=== PATIENT | male | born 1990 | race Caucasian/White ===

== ENCOUNTER 2019-09-08 18:54 | Inpatient (IN) ==
[2019-09-08 19:34] LABS: BASO# 0.28 X1000 (0.0-0.2); BASO% 4.3 % (0.0-0.8); EOS# 0.12 X1000 (0.0-0.7); EOS% 1.8 % (0.0-10.0); HEMATOCRIT 48.1 % (42.0-52.0); HEMOGLOBIN 16.2 g/dL (14.0-18.0); IMM GRAN# 0.02 X1000 (0.0-0.04); IMM GRAN% 0.3 % (0.0-0.5); LYMPH# 2.95 X1000 (1.2-3.4); LYMPH% 45.4 % (20.5-51.1); MCH 29.2 PG (27-31); MCHC 33.7 g/dL (33-37); MCV 86.7 FL (81-99); MONO# 0.83 X1000 (0.11-0.59); MONO% 12.8 % (1.7-9.3); MPV 11.1 FL (7.4-10.4); NEUT% 35.4 % (42.2-75.2); PLT 241 X1000 (130-400); RBC 5.55 XMIL (4.7-6.1)
[2019-09-08 19:53] LABS: AGAP 11; ALB/GLOB RATIO 1.1; ALBUMIN 3.6 g/dL (3.5-5.0); ALKALINE PHOSPHATASE 170 U/L (32-122); BUN 9 mg/dL (8-22); CHLORIDE 101 mmol/L (98-107); COSMO 275; CREATININE 0.8 mg/dL (0.7-1.2); ESTIMATED GFR > 60; GLUCOSE 114 mg/dL (70-104); LIPASE 14 U/L (13-60); POTASSIUM 4.4 mmol/L (3.5-5.1); SODIUM 138 mmol/L (136-145); TCO2 26 mmol/L (25-35); TOTAL BILIRUBIN 3.33 mg/dL (0.20-1.00); TOTAL PROTEIN 6.9 g/dL (6.3-8.3)
[2019-09-08 19:57] LABS: GOT 1016 U/L (10-34); GPT 1791 U/L (10-44)
[2019-09-08] MEDS ORDERED: ZOFRAN IV ONE (23:10)
[2019-09-08] MEDS ORDERED: NS 1,000 ML IV ONE (23:10)
[2019-09-08 23:16] LABS: URINE SOURCE CLEAN CATCH
[2019-09-08 23:21] LABS: BILIRUBIN URINE LARGE (NEGATIVE); BLOOD URINE NEGATIVE (NEGATIVE); COLOR YELLOW; GLUCOSE URINE NEGATIVE (NEGATIVE); KETONE URINE NEGATIVE (NEGATIVE); LEUKOCYTES URINE NEGATIVE (NEGATIVE); NITRITE URINE NEGATIVE (NEGATIVE); PROTEIN URINE 30 mg/dL (NEGATIVE); TURBIDITY URINE CLEAR (CLEAR); UR EPITHELIAL CELLS <10 /HPF (<10); URINE BACTERIA NEGATIVE /HPF; URINE RBC TNTC /HPF (<10); URINE WBC <10 /HPF (<10); UROBILINOGEN URINE 8 mg/dL (NORMAL)
--- NOTE | 2019-09-08 23:35 | PROVIDER DOCUMENTATION ---
This chart was entered by Kimberley Humphries Scribe, acting as scribe for Cynthia Arthur MD. HPI-Abdominal Pain/GI Problem - General Chief Complaint: Abdominal Pain Stated Complaint: ABD PAIN Time Seen by Provider: 09/08/19 19:21 Source: patient Allergies/Adverse Reactions: Patient Allergies Allergy/AdvReac Type Severity Reaction Status Date / Time No Known Allergies Allergy Verified 09/08/19 22:12 Home Medications: Home Medication List Medication Instructions Recorded Confirmed Last Taken Type NK [No Home Medications] 09/08/19 09/08/19 Unknown History - History of Present Illness-ABD Nature of Presenting Problems: Pt is a 28 yom who presents to the ED with LLQ and Epigastric pain onset 1 wk ago. Pt reports N/V and poor appetite. Pt reports poor fluid and solid intake, states that he "cant keep anything down." Pt denies any diarrhea. Reports possible fever. 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 States that he hasn't used in 2months. Pt is jaundice in appearance. Pt denies any other complaints. Abdominal Pain Onset Location: reports: LLQ, epigastric Quality of Pain: reports: fullness, other (bloating) Severity in ED: reports: mild Onset/Duration: reports: 1 week ago Timing: reports: still present Activities at Onset: reports: none Exposure to sick contacts?: No Modifying Factors: improves with: nothing Associated Symptoms: reports: fever/chills (possible), loss of appetite, nausea, vomiting, other (dehydration) Last BM: unsure Dark Stools Present?: reports: none noticed Rectal Bleeding: reports: none Rectal Pain: reports: none Emesis Description: reports: none Bruising or Bleeding Gums?: No Similar Symptoms Previously?: No Recently seen or treated by another doctor?: No Review of Systems - Adult - REVIEW OF SYSTEMS - ADULT Constitutional: reports: see HPI Eyes: reports: see HPI Ears, Nose, Mouth & Throat: reports: no symptoms reported Cardiovascular: reports: no symptoms reported Respiratory: reports: no symptoms reported Gastrointestinal: reports: see HPI, abdominal pain (LLQ, Epigastric), nausea, poor appetite, vomiting, other (poor fluid and solid intake) Genitourinary: reports: no symptoms reported Musculoskeletal: reports: no symptoms reported Integumentary: reports: no symptoms reported Neurological: reports: no symptoms reported Psychiatric: reports: no symptoms reported Endocrine: reports: no symptoms reported Hematologic/Lymphatic: reports: no symptoms reported Allergic/Immunologic: reports: no symptoms reported All Other Systems: Reviewed and Negative Past History - Adult - PAST MEDICAL HISTORY-ADULT Review of Records: reports: Old Records Reviewed, Nursing Assessment Review, Medications Reviewed, Social history reviewed & non-contributory. Major Childhood Illnesses: reports: denies history Cardiovascular: reports: denies history Respiratory: reports: denies history Gastrointestinal: reports: denies history Obstetrical/Gynecological: reports: denies history Genitourinary: reports: denies history Musculoskeletal: reports: denies history Neurological: reports: denies history Endocrine/Immune: reports: denies history Other Conditions: reports: denies history - PRIOR SURGERIES/PROCEDURES Surgical/Procedure History: reports: reviewed, not pertinent - IMMUNIZATION STATUS Childhood Immunizations: See Nurse Assessment Flu Vaccine: See Nurse Assessment - FAMILY HISTORY Family History: kidney stones - SOCIAL HISTORY Smoking: non-smoker Substance Use: none presently/history of abuse, other (crystal meth) Living Situation: family Physical Exam-General - PHYSICAL EXAM-ADULT Initial Vital Signs Reviewed: No - CONSTITUTIONAL General Appearance: alert, no apparent distress, other (jaundice in appearance) - EYES Eyes: scleral icterus - HEAD, EARS, NOSE, MOUTH & THROAT HENMT: normocephalic/atraumatic - NECK Neck: non-tender, full range of motion, supple, normal inspection - RESPIRATORY Respiratory: chest non-tender, lungs clear, normal breath sounds, no respiratory distress, no accessory muscle use - CARDIOVASCULAR Cardiovascular: normal peripheral pulses, regular rate, rhythm, no edema, no murmur - GASTROINTESTINAL (ABDOMEN) Abdominal Exam: soft, distended (mild), tenderness (diffused abdominal tenderness) - MUSCULOSKELETAL Back Exam: normal inspection Extremity: normal range of motion, non-tender, normal gait, normal inspection, no pedal edema - SKIN Integumentary: warm/dry, jaundice (mild). negative: normal color - NEUROLOGIC Neurologic: grossly normal - PSYCHIATRIC Psych/Mental Status: normal mood/affect, normal thought content, normal thought process, oriented x 3 Progress - PLAN OF CARE/RESULTS Progress/Plan/Lab Results: Vital Signs - 8 hr 09/08/19 19:05 09/08/19 22:18 Temperature 97.4 F L Pulse Rate 94 H 94 H Respiratory Rate 17 16 Blood Pressure 121/75 121/71 O2 Sat by Pulse Oximetry 98 99 Laboratory Results - last 24 hr 09/08/19 09/08/19 19:09 19:09 WBC 6.50 RBC 5.55 Hgb 16.2 Hct 48.1 MCV 86.7 MCH 29.2 MCHC 33.7 RDW Std Deviation 15.0 H Plt Count 241 MPV 11.1 H Immature Gran % (Auto) 0.3 Neut % (Auto) 35.4 L Lymph % (Auto) 45.4 [place] % (Auto) 12.8 H Eos % (Auto) 1.8 Baso % (Auto) 4.3 H Immature Gran # (Auto) 0.02 Neut # (Auto) 2.30 Lymph # (Auto) 2.95 [place] # (Auto) 0.83 H Eos # (Auto) 0.12 Baso # (Auto) 0.28 H Sodium 138 Potassium 4.4 Chloride 101 Carbon Dioxide 26 Anion Gap 11 BUN 9 Creatinine 0.8 Estimated GFR/1.73 m2 > 60 BUN/Creatinine Ratio 11 Glucose 114 H Calculated Osmolality 275 Calcium 9.0 Total Bilirubin 3.33 H AST 1016 H ALT 1791 H Alkaline Phosphatase 170 H Total Protein 6.9 Albumin 3.6 Globulin 3.3 Albumin/Globulin Ratio 1.1 Lipase 14 Orders Category Date Time Status CBC WITH ELECTRONIC DIFF [HEME] Stat Lab 09/08/19 19:09 Completed COMPREHENSIVE METABOLIC PANEL [CHEM] Stat Lab 09/08/19 19:09 Completed LIPASE [CHEM] Stat Lab 09/08/19 19:09 Completed URINALYSIS W/POSS RFLX CULT [URINALYSIS] Stat Lab 09/08/19 19:51 Ordered Result Diagrams: 09/08/19 19:09 09/08/19 19:09 - CT/MRI 1 CT Study: Abdomen (pericholecystic fluid and/or GBW thickening. Findings suggestive of cholecystitis. Small amt of fluid seen extending along the right paracolic gutter. No choledocolithiasis or cholelithiasis. COnsider RUQ US. Hepatomegaly.) - CONSULTS/PCP/HOSPITALIST Notification #1 *Consult/PCP/Hospitalist*: Dr Gallagher Time Discussed: 00:45 Consult Disposition: other (Will see pt in consult, admit to hosp, ok to start Zosyn) #2 Consult: Dr Arreola Time Discussed: 00:54 Consult Disposition: Admit (Accept patient for admission) Departure - Departure Date of Disposition Decision: 09/09/19 Time of Disposition Decision: 00:54 DIAGNOSIS: Jaundice, Transaminitis, Total bilirubin, elevated Disposition: ADMITTED INPATIENT 09 Certified Medical Emergency: Emergent Condition: Stable - Critical Care Note This patient required my direct & personal management of CC.: No Attestation - Physician/ JANI Attestation Patient care was provided by Advanced Practice Provider:: No The physician spent face to face time with patient:: Yes Advanced Practice Provider documentation review:: Supervising physician onsite and consulted in the evaluation and care of this patient. The physician did have a face to face encounter with the patient. This chart was documented by the indicated scribe, (Kimberley Humphries Scribe) and accurately reflects the services I performed and decisions made by me, Cynthia Arthur MD, as attested by the provider's signature.
[2019-09-09 00:08] LABS: INR 1.05; PROTIME 13.8 Seconds (11.0-16.0); PTT 32.2 Seconds (22.3-41.8)
[2019-09-09 00:12] LABS: UR AMPHETAMINES QUAL PRESUMPTIVE POSITIVE (NONE DETECT); UR BARBITUATES QUAL NONE DETECTED (NONE DETECT); UR BENZODIAZEPIN QUAL NONE DETECTED (NONE DETECT); UR CANNABINOIDS QUAL PRESUMPTIVE POSITIVE (NONE DETECT); UR COCAINE QUAL NONE DETECTED (NONE DETECT); UR METHADONE QUAL NONE DETECTED (NONE DETECT); UR OPIATES QUAL NONE DETECTED (NONE DETECT); UR OXYCODONE QUAL NONE DETECTED (NONE DETECT); UR PCP QUAL NONE DETECTED (NONE DETECT)
[2019-09-09] MEDS: ZOSYN 4.5 GM in NS 100 ML IV ONE (02:53)
[2019-09-09] MEDS ORDERED: MORPHINE IV ONE (03:14)
[2019-09-09] MEDS ORDERED: PHENERGAN IV PRN (06:06)
[2019-09-09] MEDS ORDERED: TYLENOL PR PRN (06:06)
[2019-09-09] MEDS ORDERED: NICODERM PATCH TD PRN (06:06)
[2019-09-09] MEDS ORDERED: ZOFRAN IV PRN (06:06)
[2019-09-09] MEDS ORDERED: SODIUM CHLORIDE 0.9% INJ PRN (06:07)
[2019-09-09] MEDS ORDERED: SODIUM CHLORIDE 0.9% INJ SCH (06:15)
[2019-09-09] MEDS ORDERED: NS 1,000 ML IV SCH (06:15)
[2019-09-09] MEDS ORDERED: PROTONIX IV SCH (06:15)
--- NOTE | 2019-09-09 07:42 | Diag Imaging Result Doc PS360 ---
EXAM: CT ABD/PELVIS W/IV CONT ONLY INDICATION: colitis TECHNIQUE: This exam was performed using automated exposure control, adjustment of mA or kV according to patient size, and/or use of iterative reconstruction technique. COMPARISON: None. FINDINGS: The gallbladder wall is thickened and edematous and there is pericholecystic stranding and trace nonloculated fluid that extends from the gallbladder fossa into the right paracolic gutter. This is consistent with cholecystitis. No radiopaque gallstones are appreciated. There is no evidence of biliary dilatation. The liver is somewhat prominent measuring up to 20 cm craniocaudally. The spleen, pancreas, adrenal glands, kidneys, and urinary bladder are unremarkable. The appendix is normal. No focal bowel wall thickening or bowel obstruction is identified. The remainder of the GI tract is essentially unremarkable. IMPRESSION: 1.Findings consistent with acute cholecystitis as described above. 2.Hepatomegaly. Electronically signed by Ross Simpson 09/09/2019 7:40 AM
[2019-09-09] MEDS: MORPHINE IV PRN ×2 (07:57→11:38)
--- NOTE | 2019-09-09 08:03 | Diag Imaging Result Doc PS360 ---
EXAM: US GB < RUQ (LIMITED) HISTORY: ruq pain, transaminitis, jaundiced TECHNIQUE: Right upper quadrant ultrasound COMPARISON: None. FINDINGS: The liver is borderline mildly prominent. No focal hepatic abnormality. No ascites in the right upper quadrant. The gallbladder is contracted. There is sludge within it. The common bile duct measures 5 mm. Normal right kidney. No hydronephrosis. Large portions of the aorta, pancreas, and inferior vena cava are obscured. IMPRESSION: Contracted gallbladder likely containing sludge Electronically signed by Sheng Moser 09/09/2019 8:01 AM
[2019-09-09 09:44] LABS: BASO# 0.14 X1000 (0.0-0.2); BASO% 2.5 % (0.0-0.8); EOS# 0.14 X1000 (0.0-0.7); EOS% 2.5 % (0.0-10.0); HEMATOCRIT 43.3 % (42.0-52.0); HEMOGLOBIN 14.6 g/dL (14.0-18.0); LYMPH% 49.9 % (20.5-51.1); MCH 29.7 PG (27-31); MCHC 33.7 g/dL (33-37); MONO# 0.73 X1000 (0.11-0.59); MPV 11.1 FL (7.4-10.4); NEUT% 32.1 % (42.2-75.2); PLT 228 X1000 (130-400); RBC 4.92 XMIL (4.7-6.1); RDW 15.5 % (11.5-14.5); WBC 5.61 X1000 (4.8-10.8)
[2019-09-09] MEDS: ZOSYN 4.5 GM in NS 100 ML IV SCH ×2 (10:00→15:33)
[2019-09-09 10:57] LABS: AGAP 12; ALBUMIN 3.1 g/dL (3.5-5.0); ALKALINE PHOSPHATASE 149 U/L (32-122); BUN 9 mg/dL (8-22); CALCIUM 8.3 mg/dL (8.8-10.2); CHLORIDE 103 mmol/L (98-107); COSMO 273; CREATININE 0.9 mg/dL (0.7-1.2); ESTIMATED GFR > 60; GLUCOSE 77 mg/dL (70-104); POTASSIUM 4.1 mmol/L (3.5-5.1); SODIUM 138 mmol/L (136-145); TCO2 23 mmol/L (25-35); TOTAL BILIRUBIN 4.14 mg/dL (0.20-1.00); TOTAL PROTEIN 6.1 g/dL (6.3-8.3)
[2019-09-09] MEDS ORDERED: INVANZ 1 GM/NS 1 GM/50 ML IVPB IV SCH (11:15)
[2019-09-09 11:19] LABS: GOT 928 U/L (10-34); GPT 1546 U/L (10-44)
--- NOTE | 2019-09-09 11:54 | HISTORY AND PHYSICAL ---
PRIMARY CARE PROVIDER: The patient does not have a primary care provider. CHIEF COMPLAINT: Abdominal pain with nausea and vomiting. HISTORY OF PRESENT ILLNESS: Mr. lAlen is a 28-year-old male who presents to the ER this evening with symptoms that have been ongoing for approximately 1 week. He reports that initially 1 week ago that he began having repeated belching and then began having nausea and vomiting, was unable to hold down food or liquids. He reports that this became worse every time he tried to eat including the belching. He reported that approximately 1 to 2 days after these symptoms started that he began to have right mid and left upper abdominal pain and was having some left lower quadrant pain as well. He states this pain was intermittent, was crampy in nature, though was much worse after he ate. He also reported some early satiety as well, stating that he could take just a small sip of water and instantly feel full and bloated. He also reported that he has had chills and felt as though he has had a fever, though he states he did not have a thermometer at home to check this with. He has also reported that he has had a dark discoloration to his urine. The patient denies any previous liver disease or gallbladder disease. He does report he has had occasional headache over the past week. He denies any dizziness. He denies any chest pain, shortness of breath, or cough. He denies any dysuria or urinary frequency. He denies any pain, numbness, tingling or swelling in the extremities. Upon evaluation in the ER, the patient was noted to have some jaundice to bilateral sclerae. He does feel maybe to have some slight abdominal distention and did have some tenderness noted upon palpation of his upper right mid and left quadrant, as well as his left lower quadrant. Laboratory findings revealed transaminitis. Secondary to this and his reported symptoms and assessment findings, they did perform a CT of the abdomen and pelvis with IV contrast, which did show that he had a pericholecystic fluid and/or gallbladder wall thickening. These findings are suggestive of cholecystitis. There was a small amount of fluid seen extending along the right paracolic gutter. There was no choledocholithiasis or cholelithiasis identified. Consider right upper quadrant ultrasound for further characterization. There was also hepatomegaly noted. Also, the patient denied any umcm-fog-icqetbt medication use such as Tylenol or NSAIDs. He denies any prescription use either, though he did report that he has a recent history of methamphetamine IV drug use. He states that he has not used IV methamphetamine for approximately 1 to 2 months now. He denies any alcohol use at all. The patient states that he does not drink any alcohol at all. Dr. Gallagher with surgery was notified of the patient and his CT finding by Dr. Arthur, the ER physician. The patient will be admitted to the medical floor with telemetry. REVIEW OF SYSTEMS: A 14-point review of systems was conducted with the patient and all were negative except for pertinent positives mentioned above in the HPI. PAST MEDICAL HISTORY: A history of a right foot wound infection and osteomyelitis when he was younger. PAST SURGICAL HISTORY: 1. History of right foot wound debridement. 2. Rectal cyst removal. SOCIAL HISTORY: The patient is a 1/7-neou-brg-day smoker and has been smoking for approximately 1 year. He denies any alcohol use at all. The patient does report recent IV methamphetamine drug abuse. He states that he has not used any IV methamphetamine for approximately 1 to 2 months. He denies any other illicit drug use or eckt-quy-owyxtcd or prescription medication use. PAST FAMILY MEDICAL HISTORY: The patient denies any known family medical history of problems in his mother, father, or siblings. ALLERGIES: Patient has no known allergies. HOME MEDICATIONS: The patient denies any yovj-sco-jijrqhh or prescription home medication use. DIAGNOSTIC DATA: White blood cell count 6500, hemoglobin 16.2, hematocrit 48.1, platelet count 241,000. PT 13.8, INR 1.05, PTT is 32.2. Sodium 138, potassium 4.4, chloride 101, serum bicarbonate was 26, BUN 9, creatinine 0.8, GFR is greater than 60, glucose 114, calcium 9, magnesium 2.3, total bilirubin is 3.33, AST 1016, ALT 1791, alkaline phosphatase is 170, lipase is 14. Serum alcohol 0. Urinalysis was obtained via clean catch and was positive for protein, large bilirubin, and too- bdmduirs-qc-sremc red blood cells, though was negative for glucose, ketones, nitrites, leukocytes, or bacteria. Urine drug screen positive for amphetamine and cannabinoids. CT of the abdomen and pelvis did show pericholecystic fluid and gallbladder wall thickening. Findings are suggestive of cholecystitis. There is a small amount of fluid seen extending along the right pericolic gutter. No choledocholithiasis or cholelithiasis identified. The radiologist noted to consider right upper quadrant ultrasound for further characterization. There was also hepatomegaly noted. This was per overnight on-call radiologist report. PHYSICAL EXAMINATION: VITAL SIGNS: Temperature 97.3 degrees, heart rate 85, respirations 18, blood pressure is 121/61 with a MAP of 75, oxygen saturation is 96% on room air. GENERAL: Mr. Allen is a very pleasant 28-year-old male who is resting in the ER stretcher. He is in no acute distress. He was awake, alert, and able to answer questions appropriately. HEENT: Head is atraumatic, normocephalic. Pupils are equal, round, reactive to light, were 3 mm bilaterally and brisk. He did have a slight jaundice noted to bilateral sclerae. Oral mucosa was moist. Oropharynx is clear. NECK: Supple. Trachea midline. CARDIOVASCULAR: Patient had S1, S2 present. No murmurs, gallops, rubs appreciated with a regular rate and rhythm. PULMONARY: Patient has symmetrical chest expansion bilaterally. Lung sounds are clear to auscultation in bilateral full lópez. ABDOMEN: Soft, did appear to be slightly distended. The patient does have a slightly protuberant abdomen noted as well. Though the abdomen was soft, the patient did report some tenderness upon palpation of the upper right mid and left quadrant, as well as the left lower quadrant. Bowel sounds were present in all 4 quadrants, were normoactive. EXTREMITIES: No cyanosis or edema present. Pulse, motor and sensory were intact in all extremities. Radial and pedal pulses were 2+ bilaterally. INTEGUMENTARY: The patient's skin is pink, warm, and dry. NEUROLOGICAL: Patient is alert and oriented to person, place, time, and situation. He is able to move all extremities. There are no focal neurological deficits noted. ASSESSMENT: 1. Transaminitis. 2. Possible cholecystitis. 3. Abdominal pain with nausea and vomiting. 4. History of recent intravenous methamphetamine use. 5. Nicotine dependence. PLAN: The patient was placed on the surgical floor with telemetry. We will do routine vital signs. We will place him with antibiotic coverage of Zosyn IV every 6 hours. We have ordered the patient to have a right upper quadrant gallbladder ultrasound. He will be n.p.o. We have placed a consult with Dr. Gallagher with surgery. We will await his evaluation and further recommendations for management. We have ordered a hepatitis profile as well for further evaluation of the patient's transaminitis and reported history of IV drug use. We will continue to staff counselor the patient on this admission on the importance of not using IV drugs and smoking cessation. The patient at this time states that he has stopped using IV drugs and has not used them for approximately 1 to 2 months. We have placed orders for p.r.n. nicotine patch if needed. Further orders and recommendations pending hospital course, diagnostic studies, and physician evaluation. Dictated by AUGIE Dey for Memo Arreola MD cc: Memo Arreola MD
[2019-09-09 12:39] LABS: HEPATITIS PROFILE ACUTE SEE COMMENTS
--- NOTE | 2019-09-09 16:15 | GENERAL SURGERY CONSULTATION ---
DATE: 09/09/2019 REQUESTING PHYSICIAN: Dr. Franklin. REASON FOR CONSULTATION: Possible hepatitis versus cholecystitis. HISTORY OF PRESENT ILLNESS: A 28-year-old gentleman who presented to the emergency department with symptoms of right upper quadrant pain for a week. He has had some nausea and vomiting. He was seen in the emergency department, and had several imaging that showed a contracted gallbladder but also hepatomegaly. He had elevated transaminase. I was asked to evaluate the patient. By the time I was able to evaluate the patient, he did have hepatitis A antibody positive. The patient reports some discomfort in the right upper quadrant and, still some inability to tolerate p.o. PAST MEDICAL HISTORY: Right foot infection and osteomyelitis. PAST SURGICAL HISTORY: Right foot debridement. Removal of cyst. SOCIAL HISTORY: Current smoker. Does report some IV drug abuse. FAMILY HISTORY: Reviewed with patient and noncontributory. ALLERGIES: None. HOME MEDICATIONS: None. REVIEW OF SYSTEMS: Full 14 systems reviewed, and negative except as specified in HPI. PHYSICAL EXAMINATION: Vital Signs: Patient is currently afebrile. Vital signs are stable. General: No acute distress. Alert and interactive male looks slightly jaundice. HEENT: Normocephalic, atraumatic. Pupils equal, round, and reactive to light with some scleral icterus noted. Mucous membranes moist. Oropharynx benign. Neck: Supple. Trachea midline. Cardiovascular: Regular rate and rhythm. Lungs: Grossly clear. Abdomen: Soft. There is some discomfort in the right upper quadrant, but no peritoneal signs. Extremities: Moves all extremities. Neurologic: Grossly intact. Skin: No signs of jaundice. Vascular: All extremities perfused. LABORATORIES: Reviewed. He has elevated bilirubin, AST, ALT, alkaline phosphatase, and hepatitis A was positive. IMAGING: Reviewed. ASSESSMENT AND PLAN: A 28-year-old gentleman with hepatitis. Hepatitis. At this time, I suspect all of his transaminase increase is secondary to hepatitis. I suspect his gallbladder on imaging is secondary to the hepatitis that is occurring, and not an acute gallbladder issue. From a surgical point of view, we will just monitor. I am okay with starting him on diet and just seeing how he does. I will continue to follow. cc: Trino Tyson MD
[2019-09-09 16:24] VITALS: BP 124/80
[2019-09-09 21:21] LABS: HIV ANTIBODY SCREEN SEE COMMENTS
== END 2019-09-09 16:48 | disposition left against medical advice (07) | DRG 443 ==
LOC: ED 18:54 → 4N 09-09 02:25 → SUATTDRO 09-09 02:25
PROVIDERS: ATTEND Internal Medicine

== ENCOUNTER 2019-09-12 09:21 | Inpatient (IN) ==
--- NOTE | 2019-09-12 10:44 | PROVIDER DOCUMENTATION ---
HPI-Abdominal Pain/GI Problem - General Chief Complaint: N/V/D Stated Complaint: ABD PAIN Time Seen by Provider: 09/12/19 10:35 Source: patient Allergies/Adverse Reactions: Patient Allergies Allergy/AdvReac Type Severity Reaction Status Date / Time No Known Allergies Allergy Verified 09/12/19 11:31 Home Medications: Home Medication List Medication Instructions Recorded Confirmed Last Taken Type NK [No Home Medications] 09/08/19 09/12/19 Unknown History - History of Present Illness-ABD Nature of Presenting Problems: 28 YOM with recent admission for Hep A infection with transaminitis, N/V, abdominal pain left AMA due to needing move homes and presents today with worsening symptoms. He c/o N/V/D, abdominal pain, poor PO intake since leaving. Denies fever, chills, SOB, CP. Initially began on 09/02/2019 Abdominal Pain Onset Location: reports: generalized abdomen Pain Radiation: reports: no radiation Quality of Pain: reports: aching, cramping, pressure Severity in ED: reports: severe Onset/Duration: reports: other (since 09/02/2019) Timing: reports: still present, getting worse Activities at Onset: reports: none Exposure to sick contacts?: No Associated Symptoms: reports: diarrhea, loss of appetite, nausea, vomiting Last BM: this morning Dark Stools Present?: reports: none noticed Rectal Bleeding: reports: none # of Diarrhea Episodes: 8 Rectal Pain: reports: none # of Vomiting Episodes: 12 Emesis Description: reports: clear Bruising or Bleeding Gums?: No Similar Symptoms Previously?: Yes Recently seen or treated by another doctor?: Yes (admitted on 09/09/2019) Review of Systems - Adult - REVIEW OF SYSTEMS - ADULT Constitutional: reports: no symptoms reported. denies: see HPI, chills, fever, fatique, night sweats, weight gain, weight loss, other Eyes: reports: no symptoms reported. denies: see HPI, discharge, dry eyes, decreased vision, blurred vision, double vision, eye pain, redness, other Ears, Nose, Mouth & Throat: reports: no symptoms reported. denies: see HPI, ear discharge, ear pain, hearing loss, tinnitus, epistaxis, sinus problem, nose pain, loose teeth, mouth/dental pain, mouth swelling, hoarseness, throat pain, throat swelling, other Cardiovascular: reports: no symptoms reported. denies: see HPI, chest pain, edema, heart murmur, irregular heart rate, orthopnea, palpitations, poor circulation, PND, syncope, other Respiratory: reports: no symptoms reported. denies: see HPI, chronic cough, cough, dyspnea on exertion, excessive sputum production, hemoptysis, pleurisy, shortness of breath, wheezing, other Gastrointestinal: reports: see HPI, abdominal pain, diarrhea, nausea, poor appetite, vomiting. denies: constipation, difficulty swallowing, frequent heartburn, rectal bleeding Genitourinary: reports: no symptoms reported. denies: see HPI, dysuria, discharge, frequency, flank pain, frequent UTI's, hematuria, hesitency, incontinence, urinary retention, urgency, other Musculoskeletal: reports: no symptoms reported. denies: see HPI, bone pain, back pain, frequent leg cramps, joint pain, joint swelling, muscle aches, muscle weakness, neck pain, other Integumentary: reports: no symptoms reported. denies: see HPI, hives, hair loss, itching, mole changes, nail changes, rash, skin sores/ulcer, skin thickening, other Neurological: reports: no symptoms reported. denies: see HPI, ataxia, dizziness/vertigo, headache/migraines, loss of balance, numbness, paresthesia, seizure, slurred speech, syncope, tremors, other Psychiatric: reports: no symptoms reported. denies: see HPI, anxiety, anti-d epressant use, alcohol/drug dependence, depression, emotional problems, insomnia, panic attacks, suicidal thoughts, other Endocrine: reports: no symptoms reported. denies: see HPI, change in skin pigment, excessive sweating, goiter, cold intolerance, heat intolerance, incre ased hunger, increased thirst, polyuria, other Hematologic/Lymphatic: reports: no symptoms reported. denies: see HPI, blood clots, easy bruising, low blood count, lymphedema, prolonged bleeding, swollen lymph nodes, transfusions, other Allergic/Immunologic: reports: no symptoms reported. denies: see HPI, allergic reactions, allergic rhinitis, asthma, eczema, food allergy, frequent infections, hay fever, hives, positive PPD, urticaria, other Past History - Adult - PAST MEDICAL HISTORY-ADULT Review of Records: reports: Nursing Assessment Review, Social history reviewed & non-contributory. - PRIOR SURGERIES/PROCEDURES Surgical/Procedure History: reports: reviewed, not pertinent - IMMUNIZATION STATUS Childhood Immunizations: See Nurse Assessment Flu Vaccine: See Nurse Assessment - FAMILY HISTORY Family History: kidney stones Physical Exam-General - PHYSICAL EXAM-ADULT Initial Vital Signs Reviewed: Yes - CONSTITUTIONAL General Appearance: appears well, alert, no apparent distress - EYES Eyes: PERRL/EOMI, pink conjunctivae - HEAD, EARS, NOSE, MOUTH & THROAT HENMT: normocephalic/atraumatic, moist mucous membranes, normal ENT inspection - NECK Neck: non-tender, full range of motion, supple - RESPIRATORY Respiratory: chest non-tender, lungs clear, normal breath sounds, no pleuratic chest pain, no respiratory distress, no accessory muscle use - CARDIOVASCULAR Cardiovascular: normal peripheral pulses, regular rate, rhythm, no edema, no gal lop, no JVD, no murmur - GASTROINTESTINAL (ABDOMEN) Abdominal Exam: distended, tenderness - LYMPHATIC Lymphatic: no adenopathy - MUSCULOSKELETAL Back Exam: normal inspection, no CVA tenderness, no vertebral tenderness Extremity: normal range of motion, non-tender. negative: normal gait (slow gait 2/2 pain) Peripheral Pulses: radial (R): 2+, radial (L): 2+ - SKIN Integumentary: normal turgor, jaundice - NEUROLOGIC Neurologic: grossly normal. negative: aphasia, facial droop, focal weakness - PSYCHIATRIC Psych/Mental Status: normal mood/affect, oriented x 3 Progress - PLAN OF CARE/RESULTS Progress/Plan/Lab Results: Vital Signs - 8 hr 09/12/19 09:45 Temperature 97.3 F L Pulse Rate 82 Respiratory Rate 18 Blood Pressure 157/75 O2 Sat by Pulse Oximetry 98 Orders Category Date Time Status Saline Loc NOW Care 09/12/19 09:55 Active CBC WITH ELECTRONIC DIFF [HEME] Stat Lab 09/12/19 10:38 Ordered COMPREHENSIVE METABOLIC PANEL [CHEM] Stat Lab 09/12/19 10:38 Ordered LIPASE [CHEM] Stat Lab 09/12/19 10:38 Ordered URINALYSIS W/POSS RFLX CULT [URINALYSIS] Stat Lab 09/12/19 10:12 Uncollected Result Diagrams: 09/12/19 10:44 09/12/19 10:44 - CONSULTS/PCP/HOSPITALIST Notification #1 *Consult/PCP/Hospitalist*: Dr. Cheatam Time Discussed: 11:53 Consult Disposition: Admit Departure - Departure Date of Disposition Decision: 09/12/19 Time of Disposition Decision: 11:54 DIAGNOSIS: Jaundice, Hepatitis A Disposition: ADMITTED INPATIENT 09 Certified Medical Emergency: Emergent Condition: Stable Referrals and Follow-Ups: None,PCP [Primary Care Provider] - - Critical Care Note This patient required my direct & personal management of CC.: No Attestation - Physician/ JANI Attestation Patient care was provided by Advanced Practice Provider:: Yes Advanced Practice Provider:: Elise Gomes Advanced Practice Provider documentation review:: The Mid-level provider documentation, treatment plan and medical decision making was reviewed by the physician who agrees with all treatment and medical decision making by the MLP. The physician spent face to face time with patient:: No Advanced Practice Provider documentation review:: Supervising physician onsite and consulted in the evaluation and care of this patient. The physician did not have a face to face encounter with the patient.
[2019-09-12 10:52] LABS: BASO# 0.06 X1000 (0.0-0.2); BASO% 0.9 % (0.0-0.8); EOS# 0.16 X1000 (0.0-0.7); EOS% 2.3 % (0.0-10.0); HEMATOCRIT 45.7 % (42.0-52.0); HEMOGLOBIN 15.7 g/dL (14.0-18.0); IMM GRAN# 0.01 X1000 (0.0-0.04); IMM GRAN% 0.1 % (0.0-0.5); LYMPH# 1.95 X1000 (1.2-3.4); LYMPH% 28.6 % (20.5-51.1); MCH 29.7 PG (27-31); MCHC 34.4 g/dL (33-37); MCV 86.6 FL (81-99); MONO# 0.74 X1000 (0.11-0.59); MONO% 10.8 % (1.7-9.3); MPV 10.5 FL (7.4-10.4); NEUT# 3.91 X1000 (1.4-6.5); NEUT% 57.3 % (42.2-75.2); PLT 285 X1000 (130-400); RBC 5.28 XMIL (4.7-6.1); WBC 6.83 X1000 (4.8-10.8)
[2019-09-12] MEDS ORDERED: NS 1,000 ML IV ONE (11:18)
[2019-09-12] MEDS ORDERED: PHENERGAN IM ONE (11:18)
[2019-09-12] MEDS ORDERED: ZOFRAN IV ONE (11:19)
[2019-09-12 11:37] LABS: URINE SOURCE CLEAN CATCH
[2019-09-12 11:40] LABS: AGAP 12; ALBUMIN 3.9 g/dL (3.5-5.0); ALKALINE PHOSPHATASE 195 U/L (32-122); BUN 6 mg/dL (8-22); CHLORIDE 99 mmol/L (98-107); COSMO 269; CREATININE 0.5 mg/dL (0.7-1.2); ESTIMATED GFR > 60; GLUCOSE 92 mg/dL (70-104); GOT 307 U/L (10-34); GPT 911 U/L (10-44); LIPASE 20 U/L (13-60); POTASSIUM 4.5 mmol/L (3.5-5.1); SODIUM 136 mmol/L (136-145); TCO2 25 mmol/L (25-35)
[2019-09-12 11:40] LABS: BILIRUBIN URINE LARGE (NEGATIVE); BLOOD URINE NEGATIVE (NEGATIVE); COLOR YELLOW; GLUCOSE URINE NEGATIVE (NEGATIVE); KETONE URINE NEGATIVE (NEGATIVE); LEUKOCYTES URINE NEGATIVE (NEGATIVE); NITRITE URINE NEGATIVE (NEGATIVE); PROTEIN URINE TRACE mg/dL (NEGATIVE); SP GRAVITY URINE 1.028; TURBIDITY URINE CLEAR (CLEAR); UROBILINOGEN URINE 3 mg/dL (NORMAL)
[2019-09-12 11:42] LABS: UR EPITHELIAL CELLS <10 /HPF (<10); URINE BACTERIA NEGATIVE /HPF; URINE WBC <10 /HPF (<10)
[2019-09-12] MEDS ORDERED: SODIUM CHLORIDE 0.9% INJ PRN (12:51)
[2019-09-12] MEDS ORDERED: PHENERGAN IV PRN (12:51)
[2019-09-12] MEDS: PROTONIX IV SCH (13:00)
[2019-09-12 13:15] LABS: UR AMPHETAMINES QUAL PRESUMPTIVE POSITIVE (NONE DETECT); UR BARBITUATES QUAL NONE DETECTED (NONE DETECT); UR BENZODIAZEPIN QUAL NONE DETECTED (NONE DETECT); UR CANNABINOIDS QUAL NONE DETECTED (NONE DETECT); UR COCAINE QUAL NONE DETECTED (NONE DETECT); UR METHADONE QUAL NONE DETECTED (NONE DETECT); UR METHAMPHETAMINE QUAL PRESUMPTIVE POSITIVE (NONE DETECT); UR OPIATES QUAL PRESUMPTIVE POSITIVE (NONE DETECT); UR OXYCODONE QUAL NONE DETECTED (NONE DETECT); UR PCP QUAL NONE DETECTED (NONE DETECT); UR PROPOXYPHENE QUAL NONE DETECTED (NONE DETECT); UR TCA QUAL NONE DETECTED (NONE DETECT)
[2019-09-12] MEDS: DILAUDID IV PRN ×3 (13:16→21:12)
[2019-09-12] MEDS: SODIUM CHLORIDE 0.9% INJ SCH (13:17)
--- NOTE | 2019-09-12 14:02 | HISTORY AND PHYSICAL ---
PRIMARY CARE PROVIDER: No one. CHIEF COMPLAINT: Abdominal pain and yellow skin. HISTORY OF PRESENT ILLNESS: Mr. Paul Allen is a 28-year-old male who has a history of right foot infection and osteomyelitis when he was younger, most recently admitted, who left AMA, was diagnosed with hepatitis A. Originally the complaint started around 09/02/2019 where he was having primarily right upper quadrant abdominal tenderness with nausea, vomiting. He states he left against medical advice secondary to needing it to help his girlfriend move into an upstairs apartment. However, once he was unable to sleep through the night, he was not keeping anything down and in addition to that was having diarrhea he re-presents with complaints. His bilirubin is at 7, which is the highest it has been since we were starting a check on the . The trend is 3.33, 4.14 and now it is 7. He did have abdominal pelvic CT that was performed on the which was consistent with acute cholecystitis. The hepatitis panel came back positive A. He was seen by General surgery, who felt like his primary symptoms were due to his hepatitis A and not necessarily the gallbladder. Now, we will admit him. We will give him aggressive IV fluid hydration. Let him have clear liquids, treat his pain and nausea and trend his bilirubin. PAST MEDICAL HISTORY: 1. Hepatitis A most recently diagnosed in August 2019. 2. Right foot infection with osteomyelitis when he was younger. SURGICAL HISTORY: 1. Right foot wound debridement. 2. Rectal cyst removed. SOCIAL HISTORY: Half pack per day smoker for about 1 year. Denies any alcohol. 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 States last time he used was 1 month ago. He did not use while he had left AMA. FAMILY HISTORY: Denies any medical history in his family. ALLERGIES: No known drug allergies. HOME MEDICATIONS: None. REVIEW OF SYSTEMS: Fourteen point review of systems are complete and all are negative except for those mentioned above in the HPI. PHYSICAL EXAMINATION: VITAL SIGNS: Temperature 97.3 degrees, heart rate 82, respiratory rate 18, blood pressure 157/75, O2 saturation 98% on room air, 5 feet 5 inches tall, 208 pounds, BMI is 34.6. GENERAL: Mr. Paul Allen is a 28-year-old male. He is in no acute distress. He is able to answer questions appropriately. HEENT: Atraumatic, normocephalic. Pupils equal, round, reactive to light. Extraocular movements intact. Mucous membranes are dry. NECK: Trachea midline. CARDIOVASCULAR: S1, S2. Regular rate and rhythm. No rubs, gallops, murmurs. No lower extremity edema. +2 dorsalis and radial pulses. Negative JVD or carotid bruits. PULMONARY: Clear to auscultate bilateral breath sounds. No accessory muscle use or work of breathing noted. GASTROINTESTINAL: Abdomen soft, tender in all 4 quadrants and more tender in the right upper quadrant. Positive bowel sounds x4. EXTREMITIES: Moves all extremities equally with full range of motion. NEUROLOGIC: A and O x3. Follows commands. Sensory is intact. SKIN: Warm, dry, intact, and jaundice. LABORATORY DATA: White blood cells 6000, hemoglobin 15, hematocrit 45, platelet count 285,000. Sodium 136, potassium 4.5, BUN 6, creatinine 0.5, glucose 92, calcium 9, bilirubin 7, AST 307, ALT 911, alkaline false 195, albumin 3.9, lipase 20. Urinalysis trace protein, large bilirubin, 3 urobilinogen, 10 to 20 red blood cells. IMAGING: Abdominal pelvic CT on 09/08/2019. Findings consistent with acute cholecystitis. Abdominal ultrasound on 09/09/2019. Contracted gallbladder likely containing sludge. ASSESSMENT AND PLAN: 1. Acute hepatitis A with transaminitis. We will give him IV fluid hydration and treat his symptoms of nausea and pain and trend his bilirubin. If after treatment of IV fluids the bilirubin continues to climb, we may end up needing to recheck the gallbladder. 2. Tobacco abuse. Cessation discussed. 3. Recent methamphetamine abuse and he states that he is no longer going to use anymore. Dictated by AUGIE Muñiz for Cameron Luong MD cc: AUGIE Muñiz MD
[2019-09-12 14:18] LABS: INR 0.86; PROTIME 12.1 Seconds (11.0-16.0)
[2019-09-12 14:19] LABS: PTT 33.2 Seconds (22.3-41.8)
[2019-09-12] MEDS: NS 1,000 ML IV SCH ×2 (17:29→23:27)
[2019-09-13] MEDS: NS 1,000 ML IV SCH ×4 (02:00→20:49)
[2019-09-13] MEDS: DILAUDID IV PRN ×6 (03:49→20:48)
[2019-09-13 06:21] LABS: BASO# 0.04 X1000 (0.0-0.2); BASO% 0.7 % (0.0-0.8); EOS# 0.19 X1000 (0.0-0.7); EOS% 3.4 % (0.0-10.0); HEMATOCRIT 41.8 % (42.0-52.0); HEMOGLOBIN 14.1 g/dL (14.0-18.0); IMM GRAN# 0.02 X1000 (0.0-0.04); IMM GRAN% 0.4 % (0.0-0.5); LYMPH# 1.74 X1000 (1.2-3.4); LYMPH% 31.1 % (20.5-51.1); MCH 29.6 PG (27-31); MCHC 33.7 g/dL (33-37); MCV 87.6 FL (81-99); MONO# 0.71 X1000 (0.11-0.59); MONO% 12.7 % (1.7-9.3); MPV 10.8 FL (7.4-10.4); NEUT% 51.7 % (42.2-75.2); PLT 275 X1000 (130-400); RBC 4.77 XMIL (4.7-6.1); RDW 16.4 % (11.5-14.5)
[2019-09-13 06:26] LABS: AGAP 10; ALBUMIN 3.1 g/dL (3.5-5.0); ALKALINE PHOSPHATASE 160 U/L (32-122); BUN 4 mg/dL (8-22); CALCIUM 8.3 mg/dL (8.8-10.2); CHLORIDE 102 mmol/L (98-107); COSMO 270; CREATININE 0.6 mg/dL (0.7-1.2); ESTIMATED GFR > 60; GLUCOSE 91 mg/dL (70-104); GOT 184 U/L (10-34); GPT 603 U/L (10-44); MAGNESIUM 1.9 mg/dL (1.5-2.7); POTASSIUM 4.2 mmol/L (3.5-5.1); SODIUM 137 mmol/L (136-145); TCO2 25 mmol/L (25-35); TOTAL PROTEIN 6.5 g/dL (6.3-8.3)
[2019-09-13] MEDS: ZOFRAN IV PRN ×4 (06:55→20:48)
[2019-09-13 07:13] LABS: EOS 2 % (1-10); LYMPHS 32 % (21-51); MONO 14 % (1-9); SEGS 48 % (42-75)
[2019-09-13 07:14] LABS: POLYCHROM OCCASIONAL
[2019-09-13 07:15] LABS: POIKILOCYTOSIS 1+; STOMATOCYTES OCCASIONAL; TARGET CELLS OCCASIONAL
[2019-09-13] MEDS: SODIUM CHLORIDE 0.9% INJ SCH (13:26)
[2019-09-13] MEDS: PROTONIX IV SCH (13:26)
--- NOTE | 2019-09-13 19:25 | PROGRESS NOTE ---
DATE: 09/13/2019 SUBJECTIVE: Patient notes that he is feeling better. He is still nauseated although improving. PHYSICAL: Temperature 97, pulse 80s, respiratory 20, BP 133/71.General: Patient is pleasant, no distress. HEENT: Normocephalic. Neck: Supple. CV: Regular rate. Chest: Clear. Abdomen: Soft. ASSESSMENT: Acute hepatitis A with hyperbilirubinemia and transaminitis with nausea. All are improving although still not well enough to discharge home. Will continue to follow, hopefully home over the next day or 2. cc: Cameron Luong MD
--- NOTE | 2019-09-13 20:00 | HISTORY AND PHYSICAL ---
ADDENDUM: Patient seen and examined by myself while in the ER. Dictation was lost. The patient currently has jaundice secondary to hyperbilirubinemia. He has a known history of hepatitis A. He left the hospital on his own. Unfortunately, his nausea continued to be so severe that he did come back. We are going to admit him to the hospital for fluids, and will follow. cc: Cameron Luong MD
[2019-09-13] MEDS: BENADRYL PO PRN (20:48)
[2019-09-14] MEDS: DILAUDID IV PRN ×4 (00:45→12:09)
[2019-09-14] MEDS: ZOFRAN IV PRN ×3 (00:45→12:10)
[2019-09-14] MEDS: NS 1,000 ML IV SCH ×2 (04:45→12:10)
[2019-09-14 05:42] LABS: BASO# 0.04 X1000 (0.0-0.2); EOS# 0.17 X1000 (0.0-0.7); EOS% 4.2 % (0.0-10.0); HEMATOCRIT 41.6 % (42.0-52.0); HEMOGLOBIN 13.9 g/dL (14.0-18.0); IMM GRAN# 0.01 X1000 (0.0-0.04); IMM GRAN% 0.2 % (0.0-0.5); LYMPH# 1.84 X1000 (1.2-3.4); LYMPH% 45.7 % (20.5-51.1); MCH 29.6 PG (27-31); MCHC 33.4 g/dL (33-37); MCV 88.5 FL (81-99); MONO# 0.51 X1000 (0.11-0.59); MONO% 12.7 % (1.7-9.3); MPV 10.5 FL (7.4-10.4); NEUT# 1.46 X1000 (1.4-6.5); NEUT% 36.2 % (42.2-75.2); PLT 293 X1000 (130-400); RDW 16.6 % (11.5-14.5); WBC 4.03 X1000 (4.8-10.8)
[2019-09-14 05:52] LABS: AGAP 10; ALBUMIN 3.3 g/dL (3.5-5.0); ALKALINE PHOSPHATASE 170 U/L (32-122); BUN 2 mg/dL (8-22); CALCIUM 8.5 mg/dL (8.8-10.2); CHLORIDE 103 mmol/L (98-107); COSMO 276; CREATININE 0.6 mg/dL (0.7-1.2); ESTIMATED GFR > 60; GLUCOSE 98 mg/dL (70-104); GOT 141 U/L (10-34); GPT 506 U/L (10-44); MAGNESIUM 2.2 mg/dL (1.5-2.7); POTASSIUM 4.1 mmol/L (3.5-5.1); SODIUM 140 mmol/L (136-145); TCO2 27 mmol/L (25-35); TOTAL PROTEIN 6.9 g/dL (6.3-8.3)
[2019-09-14] MEDS: PROTONIX IV SCH (12:09)
[2019-09-14] MEDS: BENADRYL PO PRN (12:10)
[2019-09-14 13:03] VITALS: BP 107/82
--- NOTE | 2019-09-14 14:41 | DISCHARGE SUMMARY ---
ADMISSION DATE: 09/12/2019 DISCHARGE DATE: 09/14/2019 ADMISSION DIAGNOSES: 1. Acute hepatitis A with transaminitis. 2. Tobacco abuse. 3. Methamphetamine abuse. 4. Hyperbilirubinemia with jaundice secondary to hepatitis A. DISCHARGE DIAGNOSES: 1. Acute hepatitis A with transaminitis. 2. Tobacco abuse. 3. Methamphetamine abuse. 4. Hyperbilirubinemia with jaundice secondary to hepatitis A. CONSULTATIONS: None. SURGERIES AND PROCEDURES: None. HOSPITAL COURSE: Mr. Paul Allen is a 28-year-old, male with a medical history of hepatitis A most recently diagnosed. He was admitted earlier in the month, probably like the second week of August, with hepatitis A, but left AGAINST MEDICAL ADVICE. He returned only after 1 day of being home because the nausea and vomiting was so severe. His bilirubin level was up. AST and ALT were also up, so he was treated with IV fluid hydration, and nausea and pain were also treated. Dr. Arceo was notified by phone for any further recommendations, and he recommended getting INR/PTT and starting him on Protonix while he was here, and so that was what was done. He improved on his bilirubin daily. His AST and ALT also improved, and so he was discharged home today. DISCHARGE VITAL SIGNS: Temperature 97.6 degrees, heart rate 72, respiratory rate 20, blood pressure 107/82, O2 saturation 100% on room air. DISCHARGE LABORATORY DATA: White blood cells 4000, hemoglobin 13, hematocrit 41, platelet count 293,000. Sodium 140, potassium 4.1, BUN 2, creatinine 0.6, glucose 98, calcium 8.5. Bilirubin 4.40, AST 141, ALT 506, alkaline phosphatase 170, albumin 3.3. Urine drug screen was positive for opiates, amphetamines, and methamphetamines. His acetaminophen level was less than 1.2. Alcohol was 0. IMAGING: He had no imaging on this admission. DISCHARGE MEDICATIONS: None. DISCHARGE INSTRUCTIONS: If symptoms return and they are worse, then please seek medical attention. If jaundice returns or continues, please seek medical attention. You will need to follow up with your primary care provider. Also watch for signs or symptoms of any bleeding. Please be aggressive with oral hydration. DISCHARGE DISPOSITION: Home. Dictated by AUGIE Muñiz for Cameron Luong MD cc: AUGIE Muñiz MD
--- NOTE | 2019-09-14 17:46 | DISCHARGE SUMMARY ---
ADMISSION DATE: 09/12/2019 DISCHARGE DATE: 09/14/2019 The patient was admitted to the hospital with increased abdominal pain and nausea. He was found to be jaundiced with a bilirubin elevated at 7. He has known hepatitis. AST and ALT both were elevated. All 3 have improved. He was admitted to the hospital, kept NPO, and on IV fluids. On discharge currently he is awake and alert and he is tolerating a diet and therefore will be discharged home. cc: Cameron Luong MD
== END 2019-09-14 14:47 | disposition home or self-care (01) | DRG 443 ==
LOC: P.ED 09:21 → P.MEDSURG 15:18
PROVIDERS: ATTEND Family Medicine